=== PATIENT | female | born 1995 | race Caucasian/White ===

== ENCOUNTER 2021-06-06 09:16 | Emergency (ER) | payer SELFPAY ==
[~2021-06-06] VITALS: Ht 149.9 cm; Wt 93.2 kg
[2021-06-06 09:22] VITALS: BP 115/71
[2021-06-06] MEDS ORDERED: IBUPROFEN 600 MG TABLET PO ONE (09:45)
[2021-06-06] MEDS ORDERED: IBUP-2070 PO (10:22)
== END 2021-06-06 10:49 | disposition home or self-care (01) ==
LOC: EMS 09:19
DX: M25.561 Pain in right knee (principal); M79.661 Pain in right lower leg
CPT/HCPCS: 93971; 99284; Z7502; Z7610